=== PATIENT | female | born 1955 | race Caucasian/White ===

== ENCOUNTER 2016-10-23 13:27 | Outpatient (CLI) | payer OTHER, MEDICARE ==
--- NOTE | 2016-10-23 14:55 | DIAGNOSTIC IMAGING REPORT ---
PROCEDURE: MG BILATERAL DIAGNOSTIC W/CAD INDICATION: MASS OF LEFT AXILLA TECHNIQUE: CC and MLO digital views of each breast with true-lateral digital view of the left breast. In addition, spot compression CC and MLO views were obtained of the left upper outer quadrant . Finally, high-resolution left breast ultrasound was performed (18 mHz). COMPARISON: Mammograms and ultrasound 01/06/2016, mammogram 02/21/2015 and 01/31/2014 . FINDINGS: MAMMOGRAM: Computer-aided detection applied. Mildly dense pattern. Scattered microcalcifications. No suspicious mass or architectural distortion. Small axillary lymph nodes bilaterally unchanged. BREAST ULTRASOUND: There are two left axillary lymph nodes with fatty simeon, largest 2.2 x 2 x 1.8 cm. Appearance is similar to the right axilla. Ultrasound of the left upper outer quadrant demonstrates no evidence of mass, cyst or abnormal acoustic shadowing. IMPRESSION: 1. Negative mammogram and left breast ultrasound 2. Results discussed with the patient RESULT CODE: 1- Negative. A. A negative report should not delay biopsy if a dominant or clinically suspicious mass is present. 10-15% of cancers are not identified by x-ray. B. A negative report may reinforce clinical impression. C. Adenosis and dense breasts may obscure an underlying neoplasm. D. False positive reports average 6-10%. E.. A yearly screening mammogram is recommended. A reminder letter will be scheduled.
== END 2016-10-23 23:00 ==
LOC: MAM SRH 13:27
DX: R22.32 Localized swelling, mass and lump, left upper limb (principal)